=== PATIENT | male | born 1985 | race Asian ===

== ENCOUNTER 2023-03-05 15:05 | Inpatient (IN) | payer OTHER ==
[2023-03-05] MEDS ORDERED: Cefepime 2 GM VIAL ONE (15:55)
[2023-03-05] MEDS ORDERED: Ondansetron PF 4 MG/2 ML Vial ONE (15:55)
[2023-03-05] MEDS ORDERED: Morphine 4 MG/ML VIAL ONE (15:55)
[2023-03-05] MEDS ORDERED: Vancomycin 1 GM/200 ML (FROZEN) BAG ONE (15:55)
[2023-03-05 16:09] LABS: #Eosinphils 0.2 thou/uL (0.0-0.7); #Monocytes 1.7 thou/uL (0.11-0.59); #Neutrophils 10.7 thou/uL (1.40-6.50); %Basophils 0.3 % (0.0-1.0); %Eosinophils 1.3 % (0.0-10.0); %Lymphocytes 16.2 % (21.0-51.0); %Neutrophils 70.9 % (42.0-75.0); Hematocrit 41.6 % (42.0-52.0); Hemoglobin 14.2 g/dL (14.0-18.0); Mean Corpuscular HGB CONC 34.1 g/dL (32.0-36.0); Mean Corpuscular Hemoglobin 29.6 pg (27.0-31.0); Mean Corpuscular Volume 86.7 fl (78.0-98.0); Mean Platelet Volume 10.3 fL (7.4-10.4); Platelet Count 226 10x3/uL (130-400); RBC Distribution Width 12.7 % (11.5-14.5); White Blood Cell (WBC) Count 15.1 10x3/uL (4.8-10.8)
[2023-03-05 16:39] LABS: SARS-CoV-2 NAA Rapid Test Not Detected (NotDetected)
[2023-03-05 16:46] LABS: ALT (SGPT) 16 U/L (8-55); AST (SGOT) 11 U/L (5-34); Albumin 3.7 g/dL (3.5-5.0); Alkaline Phosphatase 82 U/L (40-110); Anion Gap 16 mmol/L (10-20); BUN (Urea Nitrogen) 19 mg/dL (8.9-20.6); Bilirubin, Total 0.5 mg/dL (0.2-1.2); Calc. Creatinine Clearance 0 mL/min (70-130); Carbon Dioxide 18 mmol/L (22-29); Chloride 101 mmol/L (98-107); Estimated GFR 77; Globulin 3.4 g/dL (2.4-3.5); Glucose 274 mg/dL (70-105); Potassium 3.9 mmol/L (3.5-5.1); Protein, Total 7.1 g/dL (6.0-8.3); Sodium 131 mmol/L (136-145)
[2023-03-05 19:15] LABS: Lactic Acid 1.7 mmol/L (0.5-2.2)
[2023-03-05] MEDS ORDERED: Senokot S 8.6-50 MG TAB PO PRN (19:17)
[2023-03-05] MEDS ORDERED: Ondansetron ODT 4 MG TAB PO PRN (19:17)
[2023-03-05 20:12] LABS: Hemoglobin A1c 8.3 % (4.0-6.0)
[2023-03-05] MEDS ORDERED: Glucagon 1 MG/ML KIT IM PRN (20:32)
[2023-03-05] MEDS ORDERED: Dextrose 5% in Water 1,000 ML IV PRN (20:32)
[2023-03-05] MEDS ORDERED: Dextrose 50% Abboject 50 ML SYRINGE SLOW IVP PRN (20:32)
[2023-03-05 20:40] VITALS: BMI 29.0
[2023-03-05] MEDS: Famotidine 20 MG TAB PO SCH (20:49)
[2023-03-05] MEDS ORDERED: Acetaminophen 500 MG TAB PO PRN (21:34)
[2023-03-05] MEDS ORDERED: HYDROcodone/Acetaminophen 5/325 mg Tablet PO PRN (21:34)
[2023-03-05] MEDS: HumaLOG 300 UNITS/3 ML VIAL SC PRN (22:03)
[2023-03-05] MEDS: Morphine 2 MG/ML VIAL SLOW IVP PRN (22:07)
[2023-03-06] MEDS: HumaLOG 300 UNITS/3 ML VIAL SC PRN ×2 (06:36→20:13)
[2023-03-06] MEDS: Morphine 2 MG/ML VIAL SLOW IVP PRN ×2 (06:38→20:17)
[2023-03-06 07:02] LABS: #Basophils 0.1 thou/uL (0.0-0.2); #Eosinphils 0.2 thou/uL (0.0-0.7); #Monocytes 1.5 thou/uL (0.11-0.59); #Neutrophils 9.1 thou/uL (1.40-6.50); %Basophils 0.4 % (0.0-1.0); %Eosinophils 1.6 % (0.0-10.0); %Lymphocytes 20.1 % (21.0-51.0); %Monocytes 10.8 % (0.0-10.0); %Neutrophils 66.9 % (42.0-75.0); Hematocrit 40.1 % (42.0-52.0); Hemoglobin 13.2 g/dL (14.0-18.0); Mean Corpuscular HGB CONC 32.9 g/dL (32.0-36.0); Mean Corpuscular Hemoglobin 28.8 pg (27.0-31.0); Mean Corpuscular Volume 87.4 fl (78.0-98.0); Mean Platelet Volume 10.4 fL (7.4-10.4); Platelet Count 213 10x3/uL (130-400); RBC Distribution Width 12.9 % (11.5-14.5); Red Blood Cell (RBC) Count 4.59 mill/uL (4.70-6.10); White Blood Cell (WBC) Count 13.6 10x3/uL (4.8-10.8)
[2023-03-06 07:31] LABS: Anion Gap 15 mmol/L (10-20); BUN (Urea Nitrogen) 15 mg/dL (8.9-20.6); Calc. Creatinine Clearance 134 mL/min (70-130); Calcium 8.3 mg/dL (7.8-10.44); Carbon Dioxide 20 mmol/L (22-29); Chloride 104 mmol/L (98-107); Estimated GFR 99; Glucose 243 mg/dL (70-105); Potassium 3.8 mmol/L (3.5-5.1); Sodium 135 mmol/L (136-145)
[2023-03-06] MEDS ORDERED: metFORMIN XR 500 MG ER.TAB PO SCH (08:00)
[2023-03-06] MEDS: Famotidine 20 MG TAB PO SCH ×2 (10:02→20:12)
[2023-03-06] MEDS: Fenofibrate 48 MG TAB PO SCH (10:02)
[2023-03-06] MEDS: Atorvastatin Calcium 40 MG TAB PO SCH (10:02)
[2023-03-06] MEDS: glipiZIDE XL 5 mg ER.TAB PO SCH (10:03)
[2023-03-06] MEDS: Insulin Glargine 30 UNITS/0.3 ML VIAL SC SCH (10:03)
[2023-03-06] MEDS: Acetaminophen 325 MG TAB PO PRN (15:29)
[2023-03-06] MEDS ORDERED: hydrALAZINE 25 MG TAB PO PRN (16:04)
[2023-03-06] MEDS ORDERED: Vancomycin 1 GM in Premix 1 BAG IVPB SCH (16:54)
[2023-03-06] MEDS ORDERED: Sodium Chloride 0.9% 1,000 ML IV SCH (17:00)
[2023-03-06] MEDS ORDERED: Vancomycin (BATCH) 2 GM in Premix 1 BAG IVPB SCH (17:30)
[2023-03-06] MEDS: Cefepime 2 GM in Sodium Chloride 0.9% 100 ML IVPB SCH (18:16)
[2023-03-07] MEDS: Vancomycin (BATCH) 1.5 GM in Premix 1 BAG IVPB SCH ×3 (06:09→22:58)
[2023-03-07] MEDS: glipiZIDE XL 5 mg ER.TAB PO SCH (07:07)
[2023-03-07] MEDS: Insulin Glargine 30 UNITS/0.3 ML VIAL SC SCH (07:07)
[2023-03-07 08:04] LABS: #Basophils 0.1 thou/uL (0.0-0.2); #Eosinphils 0.3 thou/uL (0.0-0.7); #Monocytes 1.3 thou/uL (0.11-0.59); #Neutrophils 4.1 thou/uL (1.40-6.50); %Basophils 0.6 % (0.0-1.0); %Eosinophils 4.1 % (0.0-10.0); %Lymphocytes 28.7 % (21.0-51.0); %Monocytes 15.7 % (0.0-10.0); %Neutrophils 50.7 % (42.0-75.0); Hematocrit 42.4 % (42.0-52.0); Mean Corpuscular Hemoglobin 29.2 pg (27.0-31.0); Mean Corpuscular Volume 88.3 fl (78.0-98.0); Mean Platelet Volume 10.3 fL (7.4-10.4); Platelet Count 211 10x3/uL (130-400); RBC Distribution Width 12.8 % (11.5-14.5); White Blood Cell (WBC) Count 8.1 10x3/uL (4.8-10.8)
[2023-03-07 08:56] LABS: Anion Gap 13 mmol/L (10-20); BUN (Urea Nitrogen) 9 mg/dL (8.9-20.6); Calc. Creatinine Clearance 149 mL/min (70-130); Calcium 8.5 mg/dL (7.8-10.44); Carbon Dioxide 23 mmol/L (22-29); Chloride 103 mmol/L (98-107); Estimated GFR 112; Glucose 177 mg/dL (70-105); Sodium 135 mmol/L (136-145)
[2023-03-07] MEDS: Fenofibrate 48 MG TAB PO SCH (09:17)
[2023-03-07] MEDS: Famotidine 20 MG TAB PO SCH ×2 (09:17→21:12)
[2023-03-07] MEDS: Atorvastatin Calcium 40 MG TAB PO SCH (09:17)
[2023-03-07] MEDS ORDERED: fentaNYL PF 100 MCG/2 ML SYRINGE ONE (14:34)
[2023-03-07] MEDS ORDERED: Vancomycin HCl 500 MG VIAL ONE (14:36)
[2023-03-07] MEDS ORDERED: Ondansetron PF 4 MG/2 ML Vial ONE (14:45)
[2023-03-07] MEDS ORDERED: PROPOFOL 200 MG/20 ML VIAL ONE (14:45)
[2023-03-07] MEDS ORDERED: Lidocaine 1% PF 5 ML VIAL ONE (14:45)
[2023-03-07] MEDS ORDERED: Bupivacaine PF 0.5% 30 ML VIAL ONE (14:58)
[2023-03-07] MEDS ORDERED: HYDROmorphone 2 MG/ML VIAL SLOW IVP PRN (15:44)
[2023-03-07] MEDS ORDERED: Ondansetron HCl/PF 4 MG/2 ML Vial IVP PRN (15:44)
[2023-03-07] MEDS ORDERED: Promethazine HCl 25 MG/ML VIAL IM PRN (15:44)
[2023-03-07] MEDS ORDERED: Meperidine HCl/PF 25 MG/ML VIAL SLOW IVP PRN (15:44)
[2023-03-07] MEDS ORDERED: Morphine Sulfate 2 MG/ML SYRINGE SLOW IVP PRN (15:44)
[2023-03-07 22:12] LABS: Vancomycin, Trough 16.4 ug/mL
[2023-03-07] MEDS: Morphine 2 MG/ML VIAL SLOW IVP PRN (22:59)
[2023-03-08] MEDS: Cefepime 2 GM in Sodium Chloride 0.9% 100 ML IVPB SCH ×2 (05:36→17:25)
[2023-03-08] MEDS: Morphine 2 MG/ML VIAL SLOW IVP PRN ×4 (05:37→21:49)
[2023-03-08] MEDS: HumaLOG 300 UNITS/3 ML VIAL SC PRN ×3 (05:38→20:10)
[2023-03-08 06:15] LABS: #Basophils 0.1 thou/uL (0.0-0.2); #Eosinphils 0.4 thou/uL (0.0-0.7); #Monocytes 0.8 thou/uL (0.11-0.59); #Neutrophils 3.5 thou/uL (1.40-6.50); %Basophils 0.7 % (0.0-1.0); %Eosinophils 5.4 % (0.0-10.0); %Lymphocytes 36.1 % (21.0-51.0); %Neutrophils 46.5 % (42.0-75.0); Hematocrit 38.6 % (42.0-52.0); Hemoglobin 12.9 g/dL (14.0-18.0); Mean Corpuscular HGB CONC 33.4 g/dL (32.0-36.0); Mean Corpuscular Hemoglobin 29.7 pg (27.0-31.0); Mean Corpuscular Volume 88.7 fl (78.0-98.0); Mean Platelet Volume 10.3 fL (7.4-10.4); Platelet Count 234 10x3/uL (130-400); RBC Distribution Width 12.6 % (11.5-14.5); Red Blood Cell (RBC) Count 4.35 mill/uL (4.70-6.10); White Blood Cell (WBC) Count 7.5 10x3/uL (4.8-10.8)
[2023-03-08 06:38] LABS: Anion Gap 16 mmol/L (10-20); BUN (Urea Nitrogen) 11 mg/dL (8.9-20.6); Calc. Creatinine Clearance 138 mL/min (70-130); Calcium 8.7 mg/dL (7.8-10.44); Carbon Dioxide 19 mmol/L (22-29); Chloride 103 mmol/L (98-107); Estimated GFR 102; Glucose 301 mg/dL (70-105); Potassium 3.6 mmol/L (3.5-5.1); Sodium 134 mmol/L (136-145)
[2023-03-08] MEDS: Vancomycin (BATCH) 1.5 GM in Premix 1 BAG IVPB SCH ×3 (06:48→21:46)
[2023-03-08] MEDS: Insulin Glargine 30 UNITS/0.3 ML VIAL SC SCH (08:39)
[2023-03-08] MEDS: Famotidine 20 MG TAB PO SCH ×2 (08:39→20:07)
[2023-03-08] MEDS: Atorvastatin Calcium 40 MG TAB PO SCH (08:39)
[2023-03-08] MEDS: Fenofibrate 48 MG TAB PO SCH (08:40)
[2023-03-08] MEDS: glipiZIDE XL 5 mg ER.TAB PO SCH (08:40)
[2023-03-08 21:33] LABS: Vancomycin, Trough 19.5 ug/mL
[2023-03-09] MEDS: Cefepime 2 GM in Sodium Chloride 0.9% 100 ML IVPB SCH (05:52)
[2023-03-09] MEDS: Vancomycin (BATCH) 1.5 GM in Premix 1 BAG IVPB SCH ×3 (06:32→21:29)
[2023-03-09] MEDS: glipiZIDE XL 5 mg ER.TAB PO SCH (08:36)
[2023-03-09] MEDS: Fenofibrate 48 MG TAB PO SCH (08:36)
[2023-03-09] MEDS: Atorvastatin Calcium 40 MG TAB PO SCH (08:37)
[2023-03-09] MEDS: Insulin Glargine 30 UNITS/0.3 ML VIAL SC SCH ×2 (08:37→12:15)
[2023-03-09] MEDS: Famotidine 20 MG TAB PO SCH ×2 (08:38→21:31)
[2023-03-09] MEDS: HumaLOG 300 UNITS/3 ML VIAL SC PRN ×2 (12:16→17:54)
[2023-03-09] MEDS: Acetaminophen 325 MG TAB PO PRN (14:31)
[2023-03-09] MEDS: Morphine 2 MG/ML VIAL SLOW IVP PRN (21:33)
[2023-03-10 05:27] LABS: #Basophils 0.1 thou/uL (0.0-0.2); #Eosinphils 0.6 thou/uL (0.0-0.7); #Neutrophils 2.8 thou/uL (1.40-6.50); %Eosinophils 7.7 % (0.0-10.0); %Lymphocytes 44.7 % (21.0-51.0); %Monocytes 11.9 % (0.0-10.0); Hemoglobin 14.8 g/dL (14.0-18.0); Mean Corpuscular HGB CONC 33.6 g/dL (32.0-36.0); Mean Corpuscular Hemoglobin 29.1 pg (27.0-31.0); Mean Corpuscular Volume 86.4 fl (78.0-98.0); Platelet Count 298 10x3/uL (130-400); RBC Distribution Width 12.5 % (11.5-14.5); Red Blood Cell (RBC) Count 5.09 mill/uL (4.70-6.10); White Blood Cell (WBC) Count 8.1 10x3/uL (4.8-10.8)
[2023-03-10 05:48] LABS: Anion Gap 15 mmol/L (10-20); BUN (Urea Nitrogen) 14 mg/dL (8.9-20.6); CRP (Inflammatory) 0.75 mg/dL (= or < 0.5); Calc. Creatinine Clearance 149 mL/min (70-130); Carbon Dioxide 24 mmol/L (22-29); Chloride 104 mmol/L (98-107); Estimated GFR 112; Glucose 141 mg/dL (70-105); Potassium 3.9 mmol/L (3.5-5.1); Sodium 139 mmol/L (136-145)
[2023-03-10] MEDS: Vancomycin (BATCH) 1.5 GM in Premix 1 BAG IVPB SCH ×2 (05:50→14:59)
[2023-03-10 08:30] VITALS: TEMP 97.8
[2023-03-10] MEDS: Famotidine 20 MG TAB PO SCH (09:26)
[2023-03-10] MEDS: Insulin Glargine 30 UNITS/0.3 ML VIAL SC SCH (09:26)
[2023-03-10] MEDS: Atorvastatin Calcium 40 MG TAB PO SCH (09:27)
[2023-03-10] MEDS: Fenofibrate 48 MG TAB PO SCH (09:27)
[2023-03-10] MEDS: glipiZIDE XL 5 mg ER.TAB PO SCH (09:27)
[2023-03-10] MEDS: Acetaminophen 325 MG TAB PO PRN (11:28)
[2023-03-10 16:33] VITALS: BP 133/89
[2023-03-10] MEDS: HumaLOG 300 UNITS/3 ML VIAL SC PRN (17:29)
== END 2023-03-10 17:37 | disposition home or self-care (01) | DRG 982 ==
LOC: ERS 15:05 → T4-B 18:34 → OBSVTOIN 03-06 15:49 → T4-A 03-10 15:56 → T4-B 03-10 15:57
PROVIDERS: ADMIT Student in an Organized Health Care Education/Training Program; ATTEND Family Medicine
PROC: 0Q9P0ZZ Drainage of Left Metatarsal, Open Approach (ICD-10-PCS; principal; 2023-03-07)
PROC: B5181ZA Fluoroscopy of Superior Vena Cava using Low Osmolar Contrast, Guidance (ICD-10-PCS; 2023-03-10)
PROC: B548ZZA Ultrasonography of Superior Vena Cava, Guidance (ICD-10-PCS; 2023-03-10)
DX: E11.69 Type 2 diabetes mellitus with other specified complication (principal); E87.1 Hypo-osmolality and hyponatremia; L02.612 Cutaneous abscess of left foot; M86.672 Other chronic osteomyelitis, left ankle and foot; L97.429 Non-pressure chronic ulcer of left heel and midfoot with unspecified severity; E11.628 Type 2 diabetes mellitus with other skin complications; M79.89 Other specified soft tissue disorders; I10 Essential (primary) hypertension; E11.621 Type 2 diabetes mellitus with foot ulcer; B95.62 Methicillin resistant Staphylococcus aureus infection as the cause of diseases classified elsewhere; E66.9 Obesity, unspecified; F10.90 Alcohol use, unspecified, uncomplicated; Z20.822 Contact with and (suspected) exposure to COVID-19; L08.9 Local infection of the skin and subcutaneous tissue, unspecified; E78.5 Hyperlipidemia, unspecified; Z79.4 Long term (current) use of insulin; Z79.2 Long term (current) use of antibiotics; Z79.899 Other long term (current) drug therapy; Z89.421 Acquired absence of other right toe(s); Z83.3 Family history of diabetes mellitus; Z68.29 Body mass index [BMI] 29.0-29.9, adult; Z79.84 Long term (current) use of oral hypoglycemic drugs
CPT/HCPCS: 36415; 36416; 36569; 80048; 80053; 80202; 83036; 83605; 85025; 86140; 87040; 87070; 87077; 87081; 87186; 87205; 93005; 93010; 96365; 96367; 96375; 97139; C1751; J0692; J1815; J2270; J2272; J2405; J2704; J3370; J3370-JW; J3490; S0020